=== PATIENT | female | born 1975 | race Caucasian/White ===

== ENCOUNTER 2021-03-27 08:57 | Emergency (ER) | payer OTHER, MEDICAID, SELFPAY ==
[2021-03-27 09:16] VITALS: BP 143/87; PULSE 100; RESP 20; TEMP 37.2; O2SAT 98; BMI 29.0
--- NOTE | 2021-03-27 09:35 | DI.RAD.S_ITS ---
PROCEDURE: XR ABDOMEN 1V INDICATIONS: constipation TECHNIQUE: One view of the abdomen acquired. COMPARISON: None. FINDINGS: Surgical changes and devices: Clips project in the right upper quadrant. Bowel: Moderate amount of stool present in the left colon. Gas is seen in the rectal vault. No specific transition point identified. Mildly prominent right-sided small bowel loops Soft tissues: No suspicious abdominal calcifications. Visualized solid organ contours appear normal in size. Bones: No suspicious bony lesions. 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 Prominent periarticular calcification at the left hip joint. IMPRESSION: No specific transition point seen at this time although if the patient's symptoms do not improve, continued surveillance with abdominal series radiographs could be performed. Moderate stool within the left colon. Dictated by: Cristobal Winslow M.D. on 03/27/2021 at 10:04 Approved by: Cristobal Winslow M.D. on 03/27/2021 at 10:06
[2021-03-27 09:43] LABS: Appearance Urine UA CLEAR; Bilirubin Urine UA NEGATIVE (NEGATIVE); Color Urine UA YELLOW; Glucose Urine UA NEGATIVE (Negative); Ketones Urine UA TRACE (NEGATIVE); Leukocyte Esterase Urine UA NEGATIVE (NEGATIVE); Nitrite Urine UA NEGATIVE (Negative); Occult Blood Urine UA NEGATIVE (Negative); Protein Urine UA 1+ (Negative); Specific Gravity Urine UA >=1.030 (1.000-1.035); Urobilinogen Urine UA 0.2 E.U./dL (0.2)
[2021-03-27 09:54] LABS: RBC Urine 0-1/HPF (0-5/HPF); Squamous Epithelial Cell Urine 1-5 /HPF (0-5/HPF); WBC Urine 1-5/HPF (0-5/HPF)
[2021-03-27 09:55] LABS: Bacteria Urine Moderate (10-30); Culture Indicated Urine Cult Not Indicated; Hyaline Casts Urine 30-100/LPF; Mucus Urine 3+ (Negative)
--- NOTE | 2021-03-27 11:36 | ED_ITS ---
HPI - General Adult General Chief complaint: Abdominal Pain Stated complaint: stomach issues Time Seen by Provider: 03/27/21 09:35 Source: patient Mode of arrival: Family Vehicle Limitations: no limitations History of Present Illness HPI narrative: Patient is a 45-year-old female who is here for evaluation of constipation. She states she has not had a bowel movement the past couple weeks. Did try some magnesium citrate at home and also some magnesium supplementations. She is having some nausea but no vomiting. She does not feel like there is stool in the rectum ready to be passed. No urinary symptoms. Started her menstrual cycle today. Has had her gallbladder removed but no other abdominal surgeries. Related Data Home Medications Medication Instructions Recorded Confirmed venlafaxine 37.5 mg 37.5 mg PO QDAY #0 06/12/12 capsule,extended release 24 hr (Effexor XR) PREDNISOLONE ACETATE (ECONOPRED 1 drp OPHTH QID #10 ml 12/17/12 PLUS 1%) TOBRAMYCIN (TOBRASOL 0.3%) 1 drp OPHTH Q1H #0 12/17/12 [VANCOMYCIN] 1 drp OPHTH Q1H #0 12/17/12 Allergies Allergy/AdvReac Type Severity Reaction Status Date / Time No Known Drug Allergies Allergy Verified 03/27/21 09:25 Review of Systems Cardiovascular Cardiovascular: Reports system reviewed and no additional complaints, except as documented Respiratory Respiratory: Reports system reviewed and no additional complaints, except as documented Gastrointestinal Gastrointestinal: Reports as per HPI and Reports system reviewed and no additional complaints, except as documented Genitourinary Genitourinary: Reports system reviewed and no additional complaints, except as documented and Reports as per HPI Hematologic/Lymphatic On Anticoagulants: No Patient History Surgical History History of cholecystectomy Social History Smoking Status: Current every day smoker Smoking Status: Current every day smoker tobacco type: cigarettes alcohol intake frequency: 0-2 drinks per day Substance Use Type: marijuana Exam Initial Vital Signs Initial Vital Signs: Vital Signs Temperature 98.9 F 03/27/21 09:16 Pulse Rate 100 H 03/27/21 09:16 Respiratory Rate 20 03/27/21 09:16 Blood Pressure 143/87 H 03/27/21 09:16 Pulse Oximetry 98 03/27/21 09:16 Const General: cooperative, comfortable and well developed Resp Effort & Inspection: normal respiratory effort Auscultation: clear to auscultation bilaterally Cardio Rate: regular rate Rhythm: regular rhythm GI Palpation: soft, No firm, No guarding and No tender Skin General: no rashes or lesions noted Neuro General: patient alert, patient awake and moves all extremities Extrem General: normal to inspection and capillary refill normal Psych Appearance: grossly normal and well kempt Course Orders Ordered: ED Orders 03/27/21 09:23 Urine Culture Stat 03/27/21 09:34 Urinalysis and Microscopic Stat 03/27/21 09:35 XR abdomen 1V Stat Vital Signs Vital signs: Vital Signs - 8 hr 03/27/21 09:16 Temperature 98.9 F Pulse Rate 100 H Respiratory Rate 20 Blood Pressure 143/87 H Pulse Oximetry 98 Medical Decision Making Lab Data Labs: Lab Results 03/27/21 Range/Units 09:34 Urine Color Yellow Urine Appearance Clear Urine pH 5.0 (4.5-8.0) Ur Specific [place] >=1.030 H (1.000-1.035) Urine Protein 1+ H (Negative) Urine Glucose (UA) Negative (Negative) g/dL Urine Ketones Trace H (NEGATIVE) Urine Occult Blood Negative (Negative) Urine Nitrate Negative (Negative) Urine Bilirubin Negative (NEGATIVE) Urine Urobilinogen 0.2 (0.2) E.U./dL Ur Leukocyte Esterase Negative (NEGATIVE) Urine RBC 0-1/hpf (0-5/HPF) Urine WBC 1-5/hpf (0-5/HPF) Ur Squamous Epith Cells 1-5 /hpf (0-5/HPF) Urine Bacteria Moderate (10-30) H (None) Hyaline Casts 30-100/lpf (None) Urine Mucus 3+ H (Negative) Ur Culture Indicated? Cult not indicated Imaging Data Abdominal x-ray: Radiologist's Impression: [address] [address] XRay Report Signed Patient: Codie Cabrera MR#: [id number] : 1975 Acct:[id number] Age/Sex: 45 / F Date of Service: 03/27/21 Loc: ED Accession Number: [id number] ?? Procedure: XR abdomen 1V Ordering Provider: Bradford Schreibre D.O. PROCEDURE:? XR ABDOMEN 1V ? INDICATIONS:? constipation ? TECHNIQUE:? One view of the abdomen acquired.? ? COMPARISON:? None. ? FINDINGS:? ? Surgical changes and devices:? Clips project in the right upper quadrant. ? Bowel:? Moderate amount of stool present in the left colon.? Gas is seen in the rectal vault.? No specific transition point identified.? Mildly prominent right-sided small bowel loops ? Soft tissues:? No suspicious abdominal calcifications.? Visualized solid organ contours appear normal in size.? ? Bones:? No suspicious bony lesions.? 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 Prominent periarticular calcification at the left hip joint. ? IMPRESSION:? No specific transition point seen at this time although if the patient's symptoms do not improve, continued surveillance with abdominal series radiographs could be performed. ? Moderate stool within the left colon. ? Dictated by: Cristobal Winslow M.D. on 03/27/2021 at 10:04 ? ? Approved by: Cristobal Winslow M.D. on 03/27/2021 at 10:06? MDM Narrative Medical decision making narrative: Patient is a soft abdomen. Is able to move up and down on the bed without discomfort. She is not distended. X-ray does not show any signs of obstruction. I have a low suspicion for this. I feel that we can hold on radiologic studies for now. Had a long discussion with the patient and boyfriend regarding constipation. Will hold on any further intervention here in the ER. She was given return precautions. She expressed understanding and agreement. Discharge Plan Departure Patient Disposition: Home Clinical Impression: Constipation Instructions: DI for Constipation Activity Restrictions/Additional Instructions: I recommend that you increase your fluid intake. Also recommend that you start on a laxative such as MiraLax like we discussed. You can use stool softeners and enemas like we discussed as well. Contact your primary doctor for a follow- up. Return to the emergency department for any new or worsening symptoms. Prescriptions: No Action venlafaxine [Effexor XR] 37.5 MG capsule,extended release 24hr 37.5 mg PO QDAY Qty: 0 0RF PREDNISOLONE ACETATE (ECONOPRED PLUS 1%) 1 drp OPHTH QID Qty: 10 0RF [VANCOMYCIN] 1 drp OPHTH Q1H Qty: 0 0RF TOBRAMYCIN (TOBRASOL 0.3%) 1 drp OPHTH Q1H Qty: 0 0RF Referrals: Edwin Zelaya MD [Primary Care Provider] -
== END 2021-03-27 11:55 | disposition home or self-care (01) ==
PROVIDERS: Emergency Provider Emergency Medicine; Family Provider Family Medicine; PCP Family Medicine
DX: K59.00 Constipation, unspecified (principal); F17.210 Nicotine dependence, cigarettes, uncomplicated
CPT/HCPCS: 74018; 81001; 87086; 99283